=== PATIENT | female | born 1980 | race Caucasian/White ===

== ENCOUNTER 2016-08-17 12:08 | Inpatient (IN) | payer OTHER ==
[~2016-08-17] VITALS: Ht 170.2 cm; Wt 90.7 kg
[~2016-08-17 12:08] MED LIST: Docusate Sodium PO; Ibuprofen PO; LEVO75TA4 PO; PREN1TAB25 PO
[2016-08-17] MEDS ORDERED: Carboprost 250 mCg/mL Inj IM PRN ×2 (12:40→15:10)
[2016-08-17] MEDS ORDERED: Oxytocin 10 Unit/mL Inj IM PRN ×2 (12:40→15:10)
[2016-08-17] MEDS ORDERED: fentaNYL-PF 50 mCg/mL 2 mL Inj IVPUSH PRN ×2 (12:40→13:05)
[2016-08-17] MEDS ORDERED: Methylergonovine 0.2 mg/mL Inj IM PRN ×2 (12:40→15:10)
[2016-08-17] MEDS ORDERED: Lactated Ringer's 1,000 ML IV PRN (12:40)
[2016-08-17] MEDS ORDERED: Sodium Chloride LOK Flush 10 mL Syringe IVFLUSH PRN (12:40)
[2016-08-17] MEDS ORDERED: Hemorrhage Kit, Post Partum XX ONE ×2 (12:40→15:10)
[2016-08-17] MEDS ORDERED: Oxytocin 30 Units/500 mL LR 30 UNITS in IV Premix 1 EACH IV PRN ×2 (12:40→15:10)
[2016-08-17] MEDS ORDERED: Oxytocin 30 Units/500 mL LR Premix IV ONE (13:00)
[2016-08-17] MEDS ORDERED: Lactated Ringer's 1,000 ML IV SCH ×2 (13:03→15:10)
[2016-08-17] MEDS ORDERED: Lactated Ringer's 500 ML IV ONE (13:03)
[2016-08-17] MEDS ORDERED: Ondansetron 2 mg/mL 2 mL Inj IVPUSH PRN (13:05)
[2016-08-17] MEDS ORDERED: Atropine 1 mg/10 mL (Code) Syringe IVPUSH PRN (13:05)
[2016-08-17] MEDS ORDERED: EPHEDrine Sulfate 50 mg/mL Inj IVPUSH PRN (13:05)
[2016-08-17] MEDS ORDERED: fentaNYL 2 mCg/mL-Bupiv 0.125% 100 ML EPIDURAL SCH (13:05)
--- NOTE | 2016-08-17 13:06 | PCM.HPANE ---
Patient Data Surgeon Admitting Provider:Kyler Griffith MD Attending Provider:Kyler Griffith MD Primary Care Physician:Carolina Wells MD Other Provider: Reason for Visit Labor Check Ht/WT & BMI Body Mass Index Allergies Coded Allergies: No Known Allergies (Unverified Allergy, Unknown, 05/27/14) Past Anesthesia History Anesthesia History: Denies:: Abnormal Airway, Anesthesia Reactions, Difficult Intubation, Fam Anesthesia Reaction, Fam Malignant Hypertherm, Malignant Hyperthermia Medications Active Scripts [Ibuprofen] (Motrin)600 MG TABLET No Conflict [id number] Mg PO Q6H PRN For Mild Pain #30 TABLET Prov:Judith Rothman MD 05/28/14 [Docusate Sodium] (Colace)100 MG CAPSULE No Conflict [id number] Mg PO BID PRN For Constipation #20 CAPSULE Prov:Judith Rothman MD 05/28/14 Reported Medications Levothyroxine 75 Mcg [id number] Mcg PO DAILY 30 Days Ref 0 05/27/14 Vit#96/Ferrous Fum/FA ( Tablet)1 Each Tablet1 Each PO DAILY 05/27/14 History History of ENT Problems?: No HEENT History: Denies:: Abnormal Airway Cataracts Difficult Intubation Dysphagia Glaucoma Hearing Problem Sinus Problem TMJ Denture Type: None Teeth Condition: Within Normal Limits Hx of Heart Problems?: No Cardiovascular History: Denies:: AICD Abdominal Aortic Aneurism Atrial Fibrillation Cardiac Surgery Chest Pain Congestive Heart Failure Coronary Artery Disease Edema Heart Murmur Hypertension Irregular Heartbeat Pacemaker Peripheral Vascular Rheumatic Fever Thrombophlebitis Valvular Heart Disease Hx of Respiratory Problem?: No Respiratory History: Denies:: Asthma COPD Chest Surgery Cough Dyspnea Emphysema Hemoptysis Oxygen Administration Pneumonia Pulmonary Embolism Tuberculosis Use of C-PAP Machine Use of Inhalers / NEBS Hx Neurologic Problems?: No Neurological History: Denies:: Alzheimer's Disease CVA Dementia Dizziness Headaches Multiple Sclerosis Parkinson's Disease Peripheral Neuropathy Seizures TIA Hx of GI Problems?: No Gastrointestinal History: Denies:: Cirrhosis Diverticulitis Gall Bladder Disease Gastroesphageal Reflux Gastrointestinal Bleeding Heartburn Hepatitis Hiatal Hernia Liver Disease Rectal Bleeding Hx of Problems?: No Genitourinary History: Denies:: HX of Hemodialysis Kidney Stones Urinary Tract Infection HX of Peritoneal Dialysis: No Female Hx: Denies:: Currently Endometriosis Pelvic Inflammatory Problems with Breasts? Skin History: Denies:: History Skin Disorders? Pressure Ulcers Hx Musculoskeletal Problems?: No Hx of Psycho/Social Problems?: No Hx Surgeries?: No Hx Any Other Health Problems?: No Other History: Denies:: Cancer Endocrine Disease Hospitalization Thyroid Disease History Blood Transfusions: Denies:: Accept Blood Products? Blood Transfuse Reaction Blood Transfusions Hx Diabetes: No Hx Alcohol Use: NoHave You Smoked inLast 12 mo: No Stop/Bang Risk Assessment Category Category 1A: Patient has history of documented sleep apnea, and HAS NOT received any narcotic, sedative or anesthesia administration during this stay. Category 1B: Patient has history of documented sleep apnea, and HAS received any narcotic , sedative or anesthesia administration during this stay Category 2: Patient has SUSPECTED Obstructive Sleep Apnea, and HAS received any narcotic , sedative or anesthesia administration during this stay. Category 3: Patient has SUSPECTED Obstructive Sleep Apnea and HAS NOT received narcotic, sedative or anesthesia administration during this stay. Category 4: Outpatient in Procedural Areas with known sleep apnea or who screen positive for High Risk via the STOP/BANG questionnaire. Exam Exam General Appearance: Alert, Oriented X3, Cooperative, Mild Distress HEENT/AIRWAY: MP 2 Lungs: Normal Air Movement Heart: Exam Unremarkable Meds/Labs/Diagnostics Labs Test 08/17/16 12:55 Plan Impression Patient chart reviewed, patient interviewed and anesthestic plan with risks, benefits, and alternatives discussed, and informed consent obtained. ASA Physical Status: ASA2 Mod Systemic Disease Anesthetic Plan: Epidural Bene/Risks/Altern/Consents: Yes HP Complete Prior to Induction: Yes [place] Prabhakar MD Aug 17, 2016 13:06
[2016-08-17 13:07] LABS: Mean Corpuscular Hemoglobin 28.8 pg (27.0-35.0); Mean Corpuscular Volume 84.8 fL (81-100)
[2016-08-17] MEDS ORDERED: Benzocaine (Dermoplast) 20% 60 Gm Spray TOPICAL PRN (15:10)
[2016-08-17] MEDS ORDERED: oxyCODONE-Acetamin 5-325 mg Tablet PO PRN (15:10)
[2016-08-17] MEDS ORDERED: LANOlin HPA 7 Gm Ointment TOPICAL PRN (15:10)
[2016-08-17] MEDS ORDERED: Witch Hazel-Glycerin Pads TOPICAL PRN (15:10)
[2016-08-17] MEDS ORDERED: HYDROcodone-APAP 5-325 mg Tablet PO PRN (15:10)
--- NOTE | 2016-08-17 15:17 | PCM.OBVAG ---
Vaginal Delivery Date of Service Aug 17, 2016 Pre Operative Diagnosis Pre Operative Diagnosis 35 year old at 39 weeks and 5 days EGA Post Operative Diagnosis Post Operative Diagnosis same Procedure Obstetical Procedure: Normal Spontaneous Vaginal Delivery Press Officer/Sewing Machine Tester Provider and Sewing Machine Tester: Kyler Griffith MD Indication for Procedure Indication for Procedure Labor Induction: Active labor Findings Obstetrical Findings: (Male), 1 minute (8), 5 minutes (8) Analgesia/Medications Obstetrical Anesthesia: Epidural Procedure Details Procedure Details Patient presented in labor at 4cm. Progressed quickly to complete within the hour...shortly after getting her epidural. AROM with light mec. No fevers. Delivered within 10 minutes of being called complete and AROM. No complications. 1st degree midline perineal laceration repaired in usual fashion with 3-0 vicryl suture. Specimen Specimens: Placenta Blood Loss & Administration Estimated Blood Loss: 300 Blood Admin during procedure: No Post Procedure Plan Post Procedure Plan Routine Post delivery Condition: Mom stable Kyler Griffith MD Aug 17, 2016 15:17
[2016-08-17] MEDS ORDERED: Sodium Chloride LOK Flush 10 mL Syringe IVFLUSH SCH (16:30)
--- NOTE | 2016-08-18 07:21 | PCM.DC.OB ---
Obstetrical Discharge Summary Date of Service Aug 18, 2016 Date of hospital admission Aug 17, 2016 at 12:37 Date of Discharge: Aug 18, 2016 Providers Admitting Physician: Kyler Griffith MD Primary Care Physician: Carolina Wells MD Attending Physician: Kyler Griffith MD Problems: (1) Status post normal vaginal delivery Status: Acute ICD Code: [id number] Consultations None Invasive procedures NVD Date of Procedure: Aug 17, 2016 Hospital Course: Patient presented in labor. Delivered without issue. Recovered in excellent fashion. ([Docusate Sodium]) 100 MG CAPSULE 100 MG PO BID PRN PRN For Constipation Prescribed by: SAMM VELASQUEZ MD ([Ibuprofen]) 600 MG TABLET 600 MG PO Q6H PRN PRN For Mild Pain Prescribed by: SAMM VELASQUEZ MD Levothyroxine (Levothyroxine) 75 Mcg Tablet 75 MCG PO DAILY (Reported) Vit#96/Ferrous Fum/FA ( Tablet) 1 Each Tablet 1 EACH PO DAILY ( Reported) Follow-up plan See me in 6-8 weeks. Discharge Diet: No restrictions Discharge Activity-General: Pelvic Rest for 6 weeks, Try not to overdue, Be up and about, Activity as pain allows, Activity as energy allows, No lifting >15 pounds for 2 weeks Kyler Griffith MD Aug 18, 2016 07:21
--- NOTE | 2016-08-18 07:24 | PCM.DIOB ---
Obstetrical Disch Instruction Date of Service: Aug 18, 2016 Dates of Hospitalization Date of Hospital Admission Aug 17, 2016 at 12:37 Providers Admitting Physician: Kyler Griffith MD Primary Care Physician: Carolina Wells MD Attending Physician: Kyler Griffith MD Discharge Diagnosis Problems: (1) Status post normal vaginal delivery Status: Acute ICD Code: [id number] Diet Discharge Diet: No restrictions Activity Discharge Activity-General: Pelvic Rest for 6 weeks, Try not to overdue, Be up and about, Balance rest and activity, Activity as pain allows, Activity as energy allows, No lifting >15 pounds for 2 weeks Dressing and Incisional Care Hygiene: May shower, Perineal care, Sitz bath, Dermoplast spray, Witch Tammie pads Follow Up Plan Follow-up Provider (F9): Kyler Griffith MD Follow-up appointment: Weeks (8) Call your provider for: Fever or Chills, Heavy vaginal bleeding, Excessive constipation, Vaginal discomfort, Red painful breasts Kyler Griffith MD Aug 18, 2016 07:24
[2016-08-18 07:25] LABS: Mean Corpuscular Hemoglobin 28.7 pg (27.0-35.0); Mean Corpuscular Volume 86.1 fL (81-100)
[2016-08-18 17:21] VITALS: BP 119/82; PULSE 85; RESP 18
--- NOTE | 2016-08-29 08:59 | PCM.HPOB ---
Subjective Date of Service: Aug 17, 2016 Referring Provider: Admitting Physician: Kyler Griffith MD Primary Care Physician: Carolina Wells MD Attending Physician: Kyler Griffith MD Chief Complaint Labor History of Present OB History: (4), Para (1) Obstetrical Complications: None Past Medical History Obstetrical History: NVD x 1 at term Gynecologic History: see Medical History: Hypothyroidism Surgical History: see Hx Tobacco Use: No Hx Alcohol Use: No Hx Substance Use: No Past Family History Living Arrangement: with Family Genetic Screening/Counseling Genetic Screening/Counseling: Negative Review of Systems Eyes: Denies: Blurred Vision Cardiovascular: Denies: Chest Pain Respiratory: Denies: Cough Genitourinary: Denies: Dysuria Skin/Breasts: Denies: Discharge Skin: Denies: Lesions, Rash Medications Home medications Levothyroxine Allergy Coded Allergies: No Known Allergies (Unverified Allergy, Unknown, 05/27/14) Exam Vital Signs VSS Exam Reactive and Reassuring Constitutional: Well-developed, Well-nourished HEENT: Atraumatic, PERRLA, EOMI Lungs: Clear to Auscultation Heart: Exam Unremarkable, Regular Rate/Rhythm Abdomen: Gravid, No hepatosplenomegaly Extremities: Pulses Palpable x4 Skin: Rashes Neurological/Psychiatric: Alert, Oriented X3 Neuro: Grossly Neurologically Intact Gynecologic: Normal: Breasts, Cervix, Uterus, Vagina/Pelvic Support Labs/Diagnostics Labs HCT 39 OB Intrapartum Assessment/Plan Problems: (1) Normal labor Plan: Epidural prn Status: Acute ICD Code: O80 Pain Evaluation: Adequate Pain Control Post plan: Other (Routine labor care) Kyler Griffith MD August 29, 2016 08:59
== END 2016-08-18 18:12 | disposition home or self-care (01) | DRG 775 ==
LOC: FBCO 12:08 → FBC 12:37
PROVIDERS: ADMIT Family Medicine; ATTEND Family Medicine
PROC: 10E0XZZ Delivery of Products of Conception, External Approach (ICD-10-PCS; principal; 2016-08-17)
PROC: 10907ZC Drainage of Amniotic Fluid, Therapeutic from Products of Conception, Via Natural or Artificial Opening (ICD-10-PCS; 2016-08-17)
PROC: 0HQ9XZZ Repair Perineum Skin, External Approach (ICD-10-PCS; 2016-08-17)
DX: O70.0 First degree perineal laceration during delivery (principal); Z3A.39 39 weeks gestation of pregnancy; Z37.0 Single live birth; E05.00 Thyrotoxicosis with diffuse goiter without thyrotoxic crisis or storm; O99.284 Endocrine, nutritional and metabolic diseases complicating childbirth